=== PATIENT | female | born 1950 | race African-American/Black ===

== ENCOUNTER 2019-12-27 12:47 | Emergency (ER) | payer MEDICARE, OTHER ==
[~2019-12-27] VITALS: Ht 167.6 cm; Wt 136.0 kg
[~2019-12-27 12:47] MED LIST: AMLO10TA4 PO; ARIP5TAB13 PO; BENZ0.5T32 PO; BUPR150T11 PO; DOXY100C2 PO; HALO100A2 IM; HYDR-2761 PO; HYDR25CA75 PO; METH4TAB2 PO; METO100T7 PO; ambien; haldol PO; lisinopril
[2019-12-27 14:15] LABS: BASO # 0.1 x10^3/uL (0.0-0.2); BASO % 1 % (0-3); EOS # 0.2 x10^3/uL (0.0-0.7); EOS % 2 % (0-3); HEMATOCRIT 34.6 % (36.0-47.0); HEMOGLOBIN 11.5 g/dL (12.0-15.5); LYMPH # 2.8 x10^3/uL (1.0-4.8); LYMPH % 31 % (24-48); MEAN CORPUSCULAR HEMOGLOBIN 27 pg (25-35); MEAN CORPUSCULAR HGB CONC 33 g/dL (31-37); MEAN CORPUSCULAR VOLUME 83 fL (79-100); MONO # 0.7 x10^3/uL (0.0-1.1); MONO % 8 % (0-9); NEUT # 5.3 x10^3/uL (1.8-7.7); NEUT % 58 % (31-73); PLATELET COUNT 240 x10^3/uL (140-400); RED BLOOD COUNT 4.18 x10^6/uL (3.50-5.40); RED CELL DISTRIBUTION WIDTH 15.7 % (11.5-14.5); WHITE BLOOD COUNT 9.1 x10^3/uL (4.0-11.0)
[2019-12-27] MEDS ORDERED: hydrALAZINE 20 MG/ML VIAL. IVP ONE (14:15)
[2019-12-27 14:23] LABS: CALCIUM 8.4 mg/dL (8.5-10.1); GFR 66.9
--- NOTE | 2019-12-27 14:25 | RAD ---
CHEST AP ONLY History: Reason: soa / Spl. Instructions: / History: Comparison: October 12, 2016 Findings: Vascular crowding. Patchy basilar opacities. No pleural effusion. No pneumothorax. Unchanged heart size. Impression: 1. Mild vascular crowding. 2. Patchy bibasilar opacities, likely atelectasis. Electronically signed by: Denis Arreola DO (12/27/2019 2:22 PM) [id number]
--- NOTE | 2019-12-27 14:27 | EKG ---
[facility] [address] [place] [id number] Test Date: 2019-12-27 Test Time: 14:14:12 Pat Name: BRYAN PAULINO Department: Room: Gender: F [employer] Owner Operator: : 1950 Requested By: NEVAEH DUVALL Order Number: [id number] Reading MD: Measurements Intervals [place] Rate: 68 P: 52 NC: 170 QRS: -13 QRSD: 100 T: 31 QT: 410 QTc: 441 Interpretive Statements SINUS RHYTHM LEFTWARD AXIS OTHERWISE NORMAL ECG RI6.02 No previous ECG available for comparison
[2019-12-27 14:29] LABS: ALBUMIN 3.2 g/dL (3.4-5.0); ALBUMIN/GLOBULIN RATIO 0.7 (1.0-1.7); MAGNESIUM 2.1 mg/dL (1.8-2.4); TOTAL BILIRUBIN 0.4 mg/dL (0.2-1.0); TOTAL PROTEIN 7.6 g/dL (6.4-8.2)
[2019-12-27 15:37] LABS: BILIRUBIN,URINE NEGATIVE (NEG); CLARITY,URINE CLEAR; COLOR,URINE YELLOW; NITRITE,URINE NEGATIVE (NEG); PROTEIN,URINE NEGATIVE (NEG-TRACE); UROBILINOGEN,URINE 0.2 mg/dL (0.2 mg/dL)
[2019-12-27 15:44] LABS: BARBITURATES NEG (NEG); BENZODIAZEPINES NEG (NEG); CANNABINOIDS NEG (NEG); COCAINE NEG (NEG); METHADONE NEG (NEG); OPIATES NEG (NEG); PHENCYCLIDINE NEG (NEG)
[2019-12-27 15:50] LABS: AMPHETAMINE/METHAMPHETAMINE NEG (NEG)
--- NOTE | 2019-12-27 15:52 | PHYS DOC ---
Past Medical History Past Medical History: COPD, Hypertension, Unknown Additional Past Medical Histor: Schizo-affective, ANGIOEDEMA Past Surgical History: Other Additional Past Surgical Histo: Temporary Trach d/t allergic reaction Smoking Status: Current Every Day Smoker Alcohol Use: Occasionally Drug Use: None General Adult EDM: Chief Complaint: HYPERTENSION HPI: HPI: Patient is a 69-year-old poorly controlled paranoid schizophrenic who presents secondary to hearing voices having auditory and visual hallucinations. She admits that she is not taking her medications. She is also on high blood pressure medicine for which she is not taking anything currently. She denies any headache lateralizing neurologic weakness. She denies any chest pain s hortness of breath or dyspnea on exertion. Apparently, she is supposed to be hospitalized at a psychiatric [facility] to get her stabilized. [] Review of Systems: Review of Systems: Constitutional: Denies fever or chills. [] Eyes: Denies change in visual acuity. [] HENT: Denies nasal congestion or sore throat. [] Respiratory: She does have some occasional shortness of breath.. [] Cardiovascular: Denies chest pain or edema. [] GI: Denies abdominal pain, nausea, vomiting, bloody stools or diarrhea. [] : Denies dysuria. [] Musculoskeletal: Denies back pain or joint pain. [] Integument: Denies rash. [] Neurologic: Denies headache, focal weakness or sensory changes. [] Endocrine: Denies polyuria or polydipsia. [] Lymphatic: Denies swollen glands. [] Psychiatric: Per HPI [] Heart Score: Risk Factors: Risk Factors: DM, Current or recent (<one month) smoker, HTN, HLP, family history of CAD, obesity. Risk Scores: Score 0 - 3: 2.5% MACE over next 6 weeks - Discharge Home Score 4 - 6: 20.3% MACE over next 6 weeks - Admit for Clinical Observation Score 7 - 10: 72.7% MACE over next 6 weeks - Early Invasive Strategies Current Medications: Current Medications Medications (Trade) Dose Ordered Sig/Caio Start Time Stop Time Status Last Admin Dose Admin Hydralazine HCl (Apresoline Inj) 20 mg 1X ONCE 12/27/19 14:15 12/27/19 14:16 DC 12/27/19 14:19 20 MG Allergies: Allergies: Allergies Coded Allergies Type Severity Reaction Last Updated Verified lisinopril Allergy Severe Anaphylaxis 08/19/15 Yes Physical Exam: PE: Constitutional: Well developed, well nourished, no acute distress, non-toxic appearance. [] HENT: Normocephalic, atraumatic, bilateral external ears normal, oropharynx moist, no oral exudates, nose normal. [] Eyes: PERRLA, EOMI, conjunctiva normal, no discharge. [] Neck: Normal range of motion, no tenderness, supple, no stridor. [] Cardiovascular:Heart rate regular rhythm, no murmur [] Lungs & Thorax: Bilateral breath sounds clear to auscultation [] Abdomen: Bowel sounds normal, soft, no tenderness, no masses, no pulsatile masses. [] Skin: Warm, dry, no erythema, no rash. [] Back: No tenderness, no CVA tenderness. [] Extremities: No tenderness, no cyanosis, no clubbing, ROM intact, no edema. [] Neurologic: Alert and oriented X 3, normal motor function, normal sensory function, no focal deficits noted. [] Psychologic: Affect normal, judgement normal, mood normal. [] Current Patient Data: Labs: Laboratory Tests Test 12/27/19 13:15 White Blood Count 9.1 x10^3/uL (4.0-11.0) Red Blood Count 4.18 x10^6/uL (3.50-5.40) Hemoglobin 11.5 g/dL (12.0-15.5) L Hematocrit 34.6 % (36.0-47.0) L Mean Corpuscular Volume 83 fL (79-100) Mean Corpuscular Hemoglobin 27 pg (25-35) Mean Corpuscular Hemoglobin Concent 33 g/dL (31-37) Red Cell Distribution Width 15.7 % (11.5-14.5) H Platelet Count 240 x10^3/uL (140-400) Neutrophils (%) (Auto) 58 % (31-73) Lymphocytes (%) (Auto) 31 % (24-48) Monocytes (%) (Auto) 8 % (0-9) Eosinophils (%) (Auto) 2 % (0-3) Basophils (%) (Auto) 1 % (0-3) Neutrophils # (Auto) 5.3 x10^3/uL (1.8-7.7) Lymphocytes # (Auto) 2.8 x10^3/uL (1.0-4.8) Monocytes # (Auto) 0.7 x10^3/uL (0.0-1.1) Eosinophils # (Auto) 0.2 x10^3/uL (0.0-0.7) Basophils # (Auto) 0.1 x10^3/uL (0.0-0.2) Sodium Level 143 mmol/L (136-145) Potassium Level 3.0 mmol/L (3.5-5.1) L Chloride Level 105 mmol/L (98-107) Carbon Dioxide Level 30 mmol/L (21-32) Anion Gap 8 (6-14) Blood Urea Nitrogen 15 mg/dL (7-20) Creatinine 1.0 mg/dL (0.6-1.0) Estimated GFR (Cockcroft-Gault) 66.9 BUN/Creatinine Ratio 15 (6-20) Glucose Level 102 mg/dL (70-99) H Calcium Level 8.4 mg/dL (8.5-10.1) L Magnesium Level 2.1 mg/dL (1.8-2.4) Total Bilirubin 0.4 mg/dL (0.2-1.0) Aspartate Amino Transferase (AST) 16 U/L (15-37) Alanine Aminotransferase (ALT) 12 U/L (14-59) L Alkaline Phosphatase 93 U/L (46-116) Troponin I Quantitative < 0.017 ng/mL (0.000-0.055) NF-Eyy-T-Type Natriuretic Peptide 400 pg/mL (0-124) H Total Protein 7.6 g/dL (6.4-8.2) Albumin 3.2 g/dL (3.4-5.0) L Albumin/Globulin Ratio 0.7 (1.0-1.7) L Laboratory Tests 12/27/19 13:15 Laboratory Tests 12/27/19 13:15 Vital Signs: Vital Signs Date Time Temp Pulse Resp B/P (MAP) Pulse Ox O2 Delivery O2 Flow Rate FiO2 12/27/19 14:19 73 211/110 12/27/19 12:47 99.0 17 98 Room Air 99.0 EKG: EKG: [] Radiology/Procedures: Radiology/Procedures: []Pertinent Labs and Imaging studies reviewed. (See chart for details) []PROCEDURE: CHEST AP ONLY CHEST AP ONLY History: Reason: soa / Spl. Instructions: / History: Comparison: October 12, 2016 Findings: Vascular crowding. Patchy basilar opacities. No pleural effusion. No pneumothorax. Unchanged heart size. Impression: 1. Mild vascular crowding. 2. Patchy bibasilar opacities, likely atelectasis. Dragon Disclaimer: Dragon Disclaimer: This electronic medical record was generated, in whole or in part, using a voice recognition dictation system. Departure Departure Impression: Primary Impression: Poorly-controlled hypertension Additional Impression: Paranoid type schizophrenia Disposition: HOME, SELF-CARE Condition: STABLE Referrals: NO PCP (PCP) Patient Instructions: Hypertension, Schizophrenia Additional Instructions: It is very important that you take your blood pressure medication as prescribed. Scripts Diltiazem Hcl (CARDIZEM LA) 240 Mg Tab.er.24h 240 MG PO DAILY for FOR HYPERTENSION, #30 TAB 0 Refills Prov: NEVAEH DUVALL DO 12/27/19 Justicifation of Admission Dx: Justifications for Admission: Justification of Admission Dx: NEVAEH Guzman DO Dec 27, 2019 15:52
[2019-12-27 16:04] LABS: HYALINE CASTS, URINE MODERATE /HPF; SQUAMOUS EPITHELIAL CELL,UR MOD /LPF
[2019-12-27 16:05] LABS: BACTERIA,URINE FEW /HPF (0-FEW); RBC,URINE 0 /HPF (0-2)
[2019-12-27 16:32] VITALS: BP 202/115
[2019-12-27] MEDS ORDERED: DILT240T PO (16:40)
== END 2019-12-27 16:51 | disposition home or self-care (01) ==
LOC: ER 12:47
DX: F20.0 Paranoid schizophrenia (principal); I10 Essential (primary) hypertension; J44.9 Chronic obstructive pulmonary disease, unspecified; F17.200 Nicotine dependence, unspecified, uncomplicated; Z88.8 Allergy status to other drugs, medicaments and biological substances
CPT/HCPCS: 36415; 71045; 80053; 80307; 81001; 83735; 83880; 84484; 85025; 87086; 93005; 96374; 99285; J0360